=== PATIENT | male | born 1960 | race Caucasian/White ===

== ENCOUNTER 2017-05-14 11:30 | Inpatient (IN) | payer MEDICARE, OTHER ==
[~2017-05-14] VITALS: Ht 180.3 cm; Wt 109.8 kg
[~2017-05-14 11:30] MED LIST: CALC-67 PO; CLOZ25TA23 PO; DIVA500T7 PO; DOCU-159 PO; LURA120T PO; LURA40TA PO; ONDA4TAB8 PO; OXYB10TA13 PO; QUET200T PO; RANI150T9 PO; TAMS0.4C2 PO
[2017-05-14] MEDS ORDERED: CLZP100T PO (12:08)
[2017-05-14] MEDS ORDERED: DIVA500T15 PO (12:08)
[2017-05-14] MEDS ORDERED: ESCI10TA48 PO (12:09)
[2017-05-14] MEDS ORDERED: DOCU-159 PO (12:09)
[2017-05-14] MEDS ORDERED: SOD CHLORIDE 0.9% 1,000 ML IV STA (12:11)
[2017-05-14] MEDS ORDERED: LURA40TA PO (12:12)
[2017-05-14] MEDS ORDERED: LURA120T PO (12:12)
[2017-05-14] MEDS ORDERED: OXYB10TA6 PO (12:13)
[2017-05-14] MEDS ORDERED: CALC-277 PO (12:16)
[2017-05-14] MEDS ORDERED: TAMS0.4C2 PO (12:17)
[2017-05-14 12:18] LABS: BASOPHILS % 0.2 % (0.0-2.0); HEMATOCRIT 43.1 % (42.0-52.0); HEMOGLOBIN 14.1 g/dl (14.0-18.0); LYMPHOCYTES # 0.7 10^3/ul (0.8-2.9); LYMPHOCYTES % 17.4 % (15.0-51.0); MEAN CORPUSCULAR HGB CONC 32.7 g/dl (32.0-37.0); MEAN CORPUSCULAR VOLUME 88.7 fl (82.0-101.0); MONOCYTE # 0.2 10^3/ul (0.3-0.9); MONOCYTES % 5.4 % (0.0-11.0); NEUTROPHILS % 76.8 % (39.0-77.0); PLATELET COUNT 140 10^3/UL (140-415); RED BLOOD COUNT 4.86 10^6/ul (4.70-6.10); RED CELL DISTRIBUTION WIDTH 14.9 % (11.5-14.5); WHITE BLOOD COUNT 4.1 10^3/ul (4.8-10.8)
[2017-05-14] MEDS ORDERED: LORA1TAB PO ×2 (12:18→17:43)
[2017-05-14 12:29] LABS: INR 1.12; PROTIME 14.4 Sec (12.2-14.2); PT RATIO 1.1
[2017-05-14 12:33] LABS: ALBUMIN 4.3 g/dl (3.3-4.9); ALBUMIN/GLOBULIN RATIO 1.1; BILIRUBIN,INDIRECT 0.4 mg/dl (0-1.1); BILIRUBIN,TOTAL 0.4 mg/dl (0.2-1.3); CALCIUM 9.8 mg/dl (8.4-10.2); CREATININE 2.72 mg/dl (0.61-1.24); POTASSIUM 4.3 mmol/L (3.5-5.1); TOTAL PROTEIN 8.2 g/dl (6.1-8.1)
[2017-05-14 12:36] LABS: ANION GAP 16 (8-16); BLOOD UREA NITROGEN 26 mg/dl (7-20); CALCIUM 9.8 mg/dl (8.4-10.2); CARBON DIOXIDE 22 mmol/L (21-31); CHLORIDE 111 mmol/L (97-110); CREATININE 2.58 mg/dl (0.61-1.24); GLUCOSE 247 mg/dl (70-220); POTASSIUM 4.4 mmol/L (3.5-5.1); SODIUM 145 mmol/L (135-144)
--- NOTE | 2017-05-14 12:42 | RADRPT ---
PROCEDURE: Chest radiograph CLINICAL INDICATION: Stroke. COMPARISON: Radiograph from 07/25/2015. TECHNIQUE: Single frontal chest radiograph. FINDINGS: Low lung volumes. The lungs are clear. No pleural effusion or focal parenchymal opacity. The cardiomediastinal silhouette is normal. No suspicious bone lesion. IMPRESSION: No acute cardiopulmonary abnormality, when allowing for portable technique and low lung volumes. RPTAT: PP Wally Pozo Physician Date Time Electronically viewed and signed by Wally Pozo Physician on 05/14/2017 12:42 LG/
[2017-05-14 12:48] LABS: TROPONIN-I < 0.012 ng/ml (0.00-0.12)
[2017-05-14 13:02] LABS: ADD UMIC YES; UR ASCORBIC ACID NEGATIVE (NEGATIVE); UR BILIRUBIN (Dip) NEGATIVE (NEGATIVE); UR BLOOD (Dip) 2+ mg/dL (NEGATIVE); UR CLARITY CLEAR (CLEAR); UR COLOR YELLOW (YELLOW); UR GLUCOSE (Dip) 1+ mg/dL (NEGATIVE); UR KETONES (Dip) TRACE mg/dL (NEGATIVE); UR LEUKOCYTE ESTERASE (Dip) NEGATIVE Leu/ul (NEGATIVE); UR NITRITE (Dip) NEGATIVE (NEGATIVE); UR RBC 1 /HPF (0-5); UR SPECIFIC GRAVITY (Dip) 1.006 (1.003-1.030); UR TOTAL PROTEIN (Dip) 2+ mg/dl (NEGATIVE); UR UROBILINOGEN (Dip) NEGATIVE (NEGATIVE)
[2017-05-14 13:06] VITALS: TEMP 101.7
[2017-05-14 13:06] LABS: PARTIAL THROMBOPLASTIN TIME 24.6 Sec (25.0-35.0)
[2017-05-14 13:15] LABS: BARBITURATES Negative (NEGATIVE); BENZODIAZEPINES Negative (NEGATIVE); CANNABINOIDS Negative (NEGATIVE); COCAINE Negative (NEGATIVE); OPIATES Negative (NEGATIVE)
--- NOTE | 2017-05-14 14:14 | RADRPT ---
PROCEDURE: CT Brain without. CLINICAL INDICATION: Left-sided weakness, concern for stroke TECHNIQUE: A CT of the brain was performed on utilizing axial sections from the skull base through the vertex without contrast. Coronal and sagittal reformats were obtained. The scan was reviewed in soft tissue brain and high frequency resolution bone algorithm windows. Images were reviewed on a high-resolution PACS workstation. CTDI = 42.69 mGy DLP = 72 0.23 mGy-cm One or more of the following dose reduction techniques were used: Automated exposure control Adjustment of the mA and / or kV according to patient size Use of iterative reconstruction technique. COMPARISON: None available FINDINGS: There is no intra or extra-axial mass, hemorrhage, or acute infarct. There is no midline shift or m ass effect. The ventricles, sulci, and cisterns are normal. The visualized orbits are unremarkable. The visualized paranasal sinuses are grossly clear. The ma stoid air cells are clear. The skull and extracranial soft tissues are grossly unremarkable. IMPRESSION: 1. No CT evidence of acute intracranial findings. If there is persistent clinical concern for acute infarct, consider MRI for further evaluation. Findings discussed with Eyad Daigle at 05/14/2017 2:10:49 PM RPTAT: UU .Henrik Arroyo MD, MD Date Time Electronically viewed and signed by .Henrik Arroyo MD, on 05/14/2017 14:13 .K/
[2017-05-14] MEDS ORDERED: SOD CHLORIDE 0.9% 1,000 ML IV SCH (14:24)
[2017-05-14] MEDS ORDERED: ACETAMINOPHEN 325 MG TAB PO PRN (14:30)
[2017-05-14] MEDS ORDERED: ONDANSETRON 4 MG INJ IV PRN (14:30)
[2017-05-14] MEDS ORDERED: SOD CHLORIDE 0.45% 1,000 ML IV ONE (14:32)
--- NOTE | 2017-05-14 14:32 | ERA ---
ER Documentation Chief Complaint Date/Time DATE: 05/14/17 TIME: 14:25 Chief Complaint Pt BIB RA for fever since this Am. HPI History obtained from EMS this patient is unable to give a detailed history secondary to his clinical condition. This is a 56-year-old male was brought in by ambulance from his rehabilitation center for evaluation of altered mental status. According to EMS this patient was walking down the hallway naked and appeared to be more altered than normal. EMS did state that the air conditioning was not on in the rehabilitation center. ROS All systems reviewed and are negative except as per history of present illness. Medications Home Meds Reported Medications Lorazepam* (Lorazepam*) 1 Mg Tablet, 1 MG PO Q6 Y for ANXIETY, #60 TAB 05/14/17 Tamsulosin Hcl* (Tamsulosin Hcl*) 0.4 Mg Cap.er.24h, 0.4 MG PO DAILY, CAP 05/14/17 Calcium Carbonate/Vitamin D3 (OYSTER SHELL 500 MG + VIT D TB) 1 Each Tablet, 1 EACH PO BID, TAB 500MG/200IU AT 8AM AND 5PM 05/14/17 Oxybutynin Chloride* (Ditropan* XL) 10 Mg Tab.er.24, 10 MG PO Q8PM, TAB.SA 05/14/17 Lurasidone Hcl (LATUDA) 120 Mg Tablet, 120 MG PO DAILY, #30 TAB TAKE WITH 40MG AT 4:30PM 05/14/17 Lurasidone Hcl (LATUDA) 40 Mg Tablet, 40 MG PO DAILY, #30 TAB TAKE WITH 120MG AT 4:30PM 05/14/17 Escitalopram Oxalate* (Escitalopram Oxalate*) 10 Mg Tablet, 10 MG PO DAILY, #30 TAB 05/14/17 Docusate Sodium* (Docusate Sodium*) 100 Mg Capsule, 100 MG PO BID, #60 CAP 05/14/17 Divalproex Sodium* (Divalproex ER*) 500 Mg Tab.er.24h, 1000 MG PO QHS, #60 TAB.SA 05/14/17 Clozapine* (Clozaril*) 100 Mg Tab, 150 MG PO QHS, TAB 05/14/17 Discontinued Reported Medications Clozapine* (Clozaril*) 25 Mg Tab, 150 MG PO HS, TAB 07/25/15 Tamsulosin Hcl* (Tamsulosin Hcl*) 0.4 Mg Cap.er.24h, 0.4 MG PO HS, CAP 07/25/15 Quetiapine Fumarate* (Seroquel*) 200 Mg Tablet, 200 MG PO HS, TAB 07/25/15 Calcium Carbonate/Vitamin D3* (Os-Hasmukh 500+D*) 1 Tab Tablet, 1 TAB PO BID, TAB 07/25/15 Oxybutynin Chloride* (Oxybutynin Chloride* ER) 10 Mg/Bottle Tab.osm.24, 10 MG PO HS, TAB.SA 07/25/15 Lurasidone Hcl (LATUDA) 120 Mg Tablet, 120 MG PO DAILY 07/25/15 Lurasidone Hcl (LATUDA) 40 Mg Tablet, 40 MG PO DAILY 07/25/15 Docusate Sodium* (Docusate Sodium*) 100 Mg Capsule, 100 MG PO BID, CAP 07/25/15 Divalproex Sodium* (Depakote ER*) 500 Mg Tabsr, 1000 MG PO HS, TAB.SA 07/25/15 Discontinued Scripts Ranitidine Hcl* (Zantac*) 150 Mg Tablet, 150 MG PO BID Y for GASTROINTESTINAL UPSET, #30 TAB Prov:HI MARS 07/25/15 Ondansetron Hcl* (Zofran*) 4 Mg Tablet, 4 MG PO Q8H Y for NAUSEA AND/OR VOMITING , #14 TAB Prov:HI MARS 07/25/15 Allergies Allergies: Coded Allergies: No Known Allergy (Unverified , 05/14/17) PMhx/Soc History of Surgery: No Anesthesia Reaction: No Hx Neurological Disorder: No Hx Respiratory Disorders: No Hx Cardiac Disorders: No Hx Psychiatric Problems: Yes ("psych" per pt) Hx Miscellaneous Medical Probl: Yes (urinary incontinence) Hx Alcohol Use: No Hx Substance Use: No Hx Tobacco Use: No Smoking Status: Former smoker Physical Exam Vitals Vital Signs Date Time Temp Pulse Resp B/P Pulse Ox O2 Delivery O2 Flow Rate FiO2 05/14/17 13:06 101.7 92 16 132/82 99 Nasal Cannula 2.0 05/14/17 12:02 106.7 108 18 132/82 97 Physical Exam INITIAL VITAL SIGNS: Reviewed by me GENERAL: The patient is warm to the touch, mild distress HEENT: Severely dry mucous membranes, pupils equal, round, and reactive to light. EOMI. There is no scleral icterus. NECK: C-spine is soft and supple, there is no meningismus. There is no cervical lymphadenopathy. LUNGS: Clear to auscultation bilaterally. There are no rales, wheezes or rhonchi. HEART: Tachycardic, no murmurs, clicks, rubs or gallops. ABDOMEN: Soft, non-tender, non-distended. There are bowel sounds in all four quadrants. No rebound or guarding. EXTREMITIES: There is no peripheral cyanosis or edema. No focal swelling or erythema. NEUROLOGICAL: GCS of 10, the patient moves all four extremities with 5/5 strength. Cranial nerves II - XII are intact. Alert and oriented SKIN: Warm to touch, there is no apparent rash or petechiae. HEME/LYMPHATIC: There is no evidence of excessive bruising or lymphedema. PSYCHIATRIC: The patient does not appear anxious or depressed. Result Diagram: 05/14/17 1051 05/14/17 1051 Results 24 hrs Laboratory Tests Test 05/14/17 10:51 05/14/17 12:00 White Blood Count 4.110^3/ul Red Blood Count 4.8610^6/ul Hemoglobin 14.1g/dl Hematocrit 43.1% Mean Corpuscular Volume 88.7fl Mean Corpuscular Hemoglobin 29.0pg Mean Corpuscular Hemoglobin Concent 32.7g/dl Red Cell Distribution Width 14.9% Platelet Count 17527^3/UL Mean Platelet Volume 11.0fl Neutrophils % 76.8% Lymphocytes % 17.4% Monocytes % 5.4% Eosinophils % 0.0% Basophils % 0.2% Nucleated Red Blood Cells % 0.0/100WBC Neutrophils # (Manual) 3.110^3/ul Lymphocytes # 0.710^3/ul Monocytes # 0.210^3/ul Eosinophils # 0.010^3/ul Basophils # 0.010^3/ul Nucleated Red Blood Cells # 0.010^3/ul Prothrombin Time 14.4Sec Prothrombin Time Ratio 1.1 INR International Normalized Ratio 1.12 Activated Partial Thromboplast Time 24.6Sec Sodium Level 146mmol/L Potassium Level 4.3mmol/L Chloride Level 111mmol/L Carbon Dioxide Level 21mmol/L Anion Gap 18 Blood Urea Nitrogen 25mg/dl Creatinine 2.72mg/dl Glucose Level 252mg/dl Hemoglobin A1c 8.8% Lactic Acid Level 2.0mmol/L 1.1mmol/L Calcium Level 9.8mg/dl Total Bilirubin 0.4mg/dl Direct Bilirubin 0.00mg/dl Indirect Bilirubin 0.4mg/dl Aspartate Amino Transf (AST/SGOT) 41IU/L Alanine Aminotransferase (ALT/SGPT) 36IU/L Alkaline Phosphatase 90IU/L Troponin I < 0.012ng/ml Total Protein 8.2g/dl Albumin 4.3g/dl Globulin 3.90g/dl Albumin/Globulin Ratio 1.10 Urine Color YELLOW Urine Clarity CLEAR Urine pH 6.0 Urine Specific [place] 1.006 Urine Ketones TRACEmg/dL Urine Nitrite NEGATIVEmg/dL Urine Bilirubin NEGATIVEmg/dL Urine Urobilinogen NEGATIVEmg/dL Urine Leukocyte Esterase NEGATIVELeu/ul Urine Microscopic RBC 1/HPF Urine Microscopic WBC 0/HPF Urine Hemoglobin 2+mg/dL Urine Glucose 1+mg/dL Urine Total Protein 2+mg/dl Urine Opiates Screen Negative Urine Barbiturates Negative Urine Amphetamines Screen Negative Urine Benzodiazepines Screen Negative Urine Cocaine Screen Negative Urine Cannabinoids Negative Current Medications Medications (Trade) Dose Ordered Sig/Evaristo Route PRN Reason Start Time Stop Time Status Last Admin Dose Admin Sodium Chloride (NS) 1,000 ml @ 1,000 mls/hr Q1H STAT IV 05/14/17 12:11 05/14/17 13:10 DC 05/14/17 12:35 Procedures/MDM EKG: Rate/Rhythm: Sinus tachycardia QRS, ST, T-waves: [No changes consistent w/ acute ischemia] Impression: [No evidence of ischemia or arrhythmia] Chest X-ray 1V Interpreted by me: Soft Tissue: No acute abnormalities Bones: No acute abnormalities Mediastinum/Cardiac Silhouette/Lungs: [No acute abnormalities] CT brain without: 1. No CT evidence of acute intracranial findings. If there is persistent clinical concern for acute infarct, consider MRI for further evaluation. This 56-year-old male presents to the emergency room for evaluation of altered mental status. When I evaluated this patient he did appear to be altered, he was arousable to painful stimuli, and was warm to the touch. We obtained a rectal temperature which showed a temperature of 106.5F. This patient was immediately externally cooled with ice packs and we did infuse this patient with cold IV normal saline. The patient underwent a septic workup which does not show any leukocytosis, CT the brain is within normal limits and chest x-ray is clear. This patient was reevaluated and this patient's temperature is now 101F. He is alert oriented to person place and time, no focal neurological deficits, answering question appropriately. This patient likely suffering from heat exhaustion and possibly minor heatstroke. The patient will be placed in for admission at this time for IV hydration. He is tolerating p.o. hydration at this time. The patient is okay with her plan of care and will be admitted at this time on the telemetry floor under the care of Dr. mendoza. Critical Care: Excluding all billable procedures Time: 48 minutes Treatments/Evaluations: Close monitoring and treatment of unstable vital signs, cardiorespiratory, and neurologic status, while maintaining tight balance of fluid, respiratory, and cardiac interventions. Departure Diagnosis: Primary Impression: Heat exhaustion Additional Impressions: Dehydration, moderate Renal insufficiency Condition: Stable WILSON CANTU DO May 14, 2017 14:31
[2017-05-14 16:29] VITALS: Ht 180.3 cm; Wt 109.8 kg
[2017-05-14 16:37] VITALS: BP 108/59; PULSE 71; RESP 18
[2017-05-14 21:45] VITALS: BP 97/57; RESP 16
[2017-05-15 03:22] VITALS: BP 111/61; RESP 18
[2017-05-15] MEDS ORDERED: LORAZEPAM 1 MG TAB PO PRN (04:30)
--- NOTE | 2017-05-15 04:44 | HP ---
Date/Time of Note Date/Time of Note DATE: 05/15/17 TIME: 04:33 Assessment/Plan VTE Prophylaxis VTE Prophylaxis Intervention: SCD's Lines/Catheters Urinary Cath still in place: Yes Reason Cath still needed: terminal illness/intractable pain Assessment/Plan Assessment/Plan 1. Altered mentation and lethargy: Secondary to heat exhaustion. Head CT negative for acute findings -Patient presented to ER with a temp of 106.9. He is status post IV fluids, Tylenol and cooling measures. Currently temperature is 97.4 -Continue IV fluid and cooling measures as needed 2. Presumed acute on CKD: Likely from volume depletion from dehydration -Continue IV fluid -Closely monitor kidney function -Renal ultrasound and nephrology consult as needed 3. Diabetes, A1c 8.8 -Insulin while in house with adjustment as needed 4. BPH -Continue home med 5. History of seizure disorder -Continue home med 6. History of bipolar/depression -Continue home meds HPI/ROS Admit Date/Time Admit Date/Time May 14, 2017 at 14:25 Hx of Present Illness This is a 56-year-old male with a history of diabetes, seizure disorder, CKD, BPH, bipolar/depression who was brought from SNF for lethargy, AMS and fever. Patient was found walking around in the hallway looking exhausted and altered. He was febrile. Reportedly the air conditioner in the hallway was not turned on. Patient not able to give meaningful history and as such information is gathered from chart review and from ER physician. When he presented to the ER, he was febrile with a temp of 106.9 and tachycardic with a heart rate of 108. Head CT was negative for acute findings. Chest x-ray also with no active cardiopulmonary disease. Patient received IV fluids, Tylenol and cooling measures were done. Currently his temperature is 97.4. . PMH/Family/Social Past Medical History .Diabetes, type II CKD Bipolar/depression BPH Seizure disorder . Social History Alcohol Use: none Smoking Status: Never smoker Drug Use: none Exam/Review of Systems Vital Signs Vitals Vital Signs Date Time Temp Pulse Resp B/P Pulse Ox O2 Delivery O2 Flow Rate FiO2 05/15/17 03:22 97.4 63 18 111/61 95 05/14/17 16:37 Room Air 05/14/17 13:06 2.0 Intake and Output 05/14/17 05/14/17 05/15/17 15:00 23:00 07:00 Intake Total 125 ml Output Total 1400 ml Balance -1275 ml Exam Constitutional: other (No acute distress. Not fully oriented) Head: atraumatic, normocephalic Eyes: EOMI, PERRL Respiratory: clear to auscultation, normal air movement Cardiovascular: other (Tachycardic with regular rhythm) Gastrointestinal: non-tender, soft Extremities: normal pulses Labs Result Diagram: 05/14/17 1051 05/14/17 1051 ANH TAYLOR MD May 15, 2017 04:44
[2017-05-15] MEDS ORDERED: GLUCOSE GEL 15 GRAM TUBE BUCCAL PRN (05:30)
[2017-05-15] MEDS ORDERED: GLUCAGON 1 MG INJ IM PRN (05:30)
[2017-05-15] MEDS ORDERED: GLUCOSE GEL 15 GRAM TUBE PO PRN ×2 (05:30)
[2017-05-15] MEDS ORDERED: DEXTROSE 50% 50 ML SYRINGE IV PRN ×2 (05:30)
[2017-05-15 06:01] LABS: ABNORMAL IP MESSAGE 1; HEMATOCRIT 35.2 % (42.0-52.0); HEMOGLOBIN 11.3 g/dl (14.0-18.0); MEAN CORPUSCULAR HGB CONC 32.1 g/dl (32.0-37.0); MEAN CORPUSCULAR VOLUME 93.4 fl (82.0-101.0); MEAN PLATELET VOLUME 11.3 fl (7.4-10.4); PLATELET COUNT 97 10^3/UL (140-415); POSITIVE DIFF @See below; RED BLOOD COUNT 3.77 10^6/ul (4.70-6.10); RED CELL DISTRIBUTION WIDTH 14.8 % (11.5-14.5)
[2017-05-15 06:20] LABS: ALBUMIN 2.7 g/dl (3.3-4.9); ALBUMIN/GLOBULIN RATIO 0.87; BILIRUBIN,INDIRECT 0.2 mg/dl (0-1.1); BILIRUBIN,TOTAL 0.2 mg/dl (0.2-1.3); CALCIUM 7.6 mg/dl (8.4-10.2); CREATININE 1.62 mg/dl (0.61-1.24); POTASSIUM 4.2 mmol/L (3.5-5.1); TOTAL PROTEIN 5.8 g/dl (6.1-8.1)
[2017-05-15 07:38] LABS: ANISOCYTOSIS 1+ (0-0); MICROCYTOSIS 1+ (0-0); MONOCYTES % (M) 9 % (0-11); PLATELET ESTIMATE DECREASED; POLYCHROMASIA 3+ (0-0)
[2017-05-15 08:00] VITALS: BP 125/69; RESP 19
[2017-05-15] MEDS: INSULIN GLARGINE [LANtus] 3 ML PEN SC SCH (08:33)
[2017-05-15] MEDS: INSULIN ASPART [NOVOLOG] 3 ML PEN SC SCH ×7 (08:33→20:34)
[2017-05-15] MEDS: ESCITALOPRAM 10 MG TAB PO SCH (08:36)
[2017-05-15] MEDS: DOCUSATE SODIUM 100 MG CAP PO SCH ×2 (08:36→20:34)
[2017-05-15] MEDS: CALCIUM/VITAMIN D (500/200) TAB PO SCH ×2 (08:36→20:34)
[2017-05-15] MEDS: TAMSULOSIN (SR) 0.4 MG CAP PO SCH (08:36)
[2017-05-15] MEDS: OXYBUTYNIN (XL) 5 MG TAB PO SCH (08:40)
--- NOTE | 2017-05-15 09:26 | PN ---
Date/Time of Note Date/Time of Note DATE: 05/15/17 TIME: 09:24 Assessment/Plan Lines/Catheters Urinary Cath still in place: Yes Assessment/Plan Assessment/Plan 1. Altered mentation and lethargy: Secondary to heat exhaustion: now resolved Head CT negative for acute findings -Patient presented to ER with a temp of 106.9. He is status post IV fluids, Tylenol and cooling measures. Currently temperature is 97.4 -Continue IV fluid and cooling measures as needed 2. Presumed acute on CKD: Likely from volume depletion from dehydration Renal uss 3. Diabetes, A1c 8.8 -Insulin while in house with adjustment as needed 4. BPH -Continue home med 5. History of seizure disorder -Continue home med 6. History of bipolar/depression -Continue home meds Subjective 24 Hr Interval Summary Free Text/Dictation patient wants navarro out, wants to know if he has BPH Exam/Review of Systems Vital Signs Vitals Vital Signs Date Time Temp Pulse Resp B/P Pulse Ox O2 Delivery O2 Flow Rate FiO2 05/15/17 08:00 97.4 63 19 125/69 97 05/14/17 16:37 Room Air 05/14/17 13:06 2.0 Intake and Output 05/14/17 05/14/17 05/15/17 15:00 23:00 07:00 Intake Total 125 ml 1795 ml Output Total 1400 ml 1200 ml Balance -1275 ml 595 ml Exam Constitutional: alert, oriented Head: atraumatic, normocephalic Neck: non-tender, supple Respiratory: clear to auscultation Cardiovascular: regular rate and rhythm Gastrointestinal: S/ NT / ND / +BS Extremities: no edema, good radial pulses Results Result Diagram: 05/15/17 0501 05/15/17 0501 Results 24 hrs Laboratory Tests Test 05/14/17 10:51 05/14/17 12:00 05/14/17 15:30 05/15/17 05:01 White Blood Count 4.1 #L 6.0 # Red Blood Count 4.86 3.77 #L Hemoglobin 14.1 11.3 L Hematocrit 43.1 35.2 L Mean Corpuscular Volume 88.7 93.4 Mean Corpuscular Hemoglobin 29.0 30.0 Mean Corpuscular Hemoglobin Concent 32.7 32.1 Red Cell Distribution Width 14.9 H 14.8 H Platelet Count 140 97 #L Mean Platelet Volume 11.0 #H 11.3 H Neutrophils % 76.8 Lymphocytes % 17.4 Monocytes % 5.4 Eosinophils % 0.0 Basophils % 0.2 Nucleated Red Blood Cells % 0.0 0.0 Neutrophils # (Manual) 3.1 3.8 Lymphocytes # 0.7 L Monocytes # 0.2 L Eosinophils # 0.0 Basophils # 0.0 Nucleated Red Blood Cells # 0.0 Prothrombin Time 14.4 H Prothrombin Time Ratio 1.1 INR International Normalized Ratio 1.12 Activated Partial Thromboplast Time 24.6 L Sodium Level 146 H 141 Potassium Level 4.3 4.2 Chloride Level 111 H 111 H Carbon Dioxide Level 21 23 Anion Gap 18 H 11 # Blood Urea Nitrogen 25 H 27 H Creatinine 2.72 H 1.62 #H Glucose Level 252 H 251 H Hemoglobin A1c 8.8 H Lactic Acid Level 2.0 1.1 0.9 Calcium Level 9.8 7.6 L Total Bilirubin 0.4 0.2 Direct Bilirubin 0.00 0.00 Indirect Bilirubin 0.4 0.2 Aspartate Amino Transf (AST/SGOT) 41 33 Alanine Aminotransferase (ALT/SGPT) 36 31 Alkaline Phosphatase 90 73 Troponin I < 0.012 Total Protein 8.2 H 5.8 #L Albumin 4.3 2.7 #L Globulin 3.90 H 3.10 Albumin/Globulin Ratio 1.10 0.87 Urine Color YELLOW Urine Clarity CLEAR Urine pH 6.0 Urine Specific [place] 1.006 Urine Ketones TRACE A Urine Nitrite NEGATIVE Urine Bilirubin NEGATIVE Urine Urobilinogen NEGATIVE Urine Leukocyte Esterase NEGATIVE Urine Microscopic RBC 1 Urine Microscopic WBC 0 Urine Hemoglobin 2+ H Urine Glucose 1+ H Urine Total Protein 2+ H Urine Opiates Screen Negative Urine Barbiturates Negative Urine Amphetamines Screen Negative Urine Benzodiazepines Screen Negative Urine Cocaine Screen Negative Urine Cannabinoids Negative Segmented Neutrophils % (Manual) 63 Band Neutrophils % (Manual) 5 H Lymphocytes % (Manual) 23 Monocytes % (Manual) 9 Band Neutrophils # 0.3 Absolute Lymphocytes (Manual) 1.3 Absolute Monocytes (Manual) 0.5 Platelet Estimate DECREASED Polychromasia 3+ Anisocytosis 1+ Microcytosis 1+ Test 05/15/17 06:32 05/15/17 08:14 Bedside Glucose 253 H 218 Medications Medications Current Medications Calcium/Vitamin D (Oyster Shell/ Vit-D (500/200)) 1 tab BID PO Last administered on 05/15/17 08:36; Admin Dose 1 TAB; Start 05/15/17 at 09:00 Clozapine (Clozaril) 150 mg QHS PO ; Start 05/15/17 at 21:00 Divalproex Sodium (Depakote Er) 1,000 mg QHS PO ; Start 05/15/17 at 21:00 Docusate Sodium (Colace) 100 mg BID PO Last administered on 05/15/17 08:36; Admin Dose 100 MG; Start 05/15/17 at 09:00 Escitalopram Oxalate (Lexapro) 10 mg DAILY PO Last administered on 05/15/17 08: 36; Admin Dose 10 MG; Start 05/15/17 at 09:00 Lorazepam (Ativan) 1 mg Q6 PRN PO ANXIETY; Start 05/15/17 at 04:30 Oxybutynin Chloride (Ditropan Xl) 10 mg DAILY PO Last administered on 05/15/17 08:40; Admin Dose 10 MG; Start 05/15/17 at 09:00 Tamsulosin HCl (Flomax) 0.4 mg DAILY PO Last administered on 05/15/17 08:36; Admin Dose 0.4 MG; Start 05/15/17 at 09:00 Diagnostic Test (Pha) (Accu-Chek) 1 ea 02 XX ; Start 05/16/17 at 02:00 Insulin Glargine (Lantus) 16 unit DAILY@08 SC Last administered on 05/15/17 08: 33; Admin Dose 16 UNIT; Start 05/15/17 at 08:00 Diagnostic Test (Pha) (Accu-Chek) 1 ea 02 XX ; Start 05/16/17 at 02:00 Miscellaneous Information 1 ea NOTE XX ; Start 05/15/17 at 05:30 Glucose (Glutose) 15 gm Q15M PRN PO DECREASED GLUCOSE; Start 05/15/17 at 05:30 Glucose (Glutose) 22.5 gm Q15M PRN PO DECREASED GLUCOSE; Start 05/15/17 at 05:30 Dextrose (D50w Syringe) 25 ml Q15M PRN IV DECREASED GLUCOSE; Start 05/15/17 at 05:30 Dextrose (D50w Syringe) 50 ml Q15M PRN IV DECREASED GLUCOSE; Start 05/15/17 at 05:30 Glucagon (Glucagen) 1 mg Q15M PRN IM DECREASED GLUCOSE; Start 05/15/17 at 05:30 Glucose (Glutose) 15 gm Q15M PRN BUCCAL DECREASED GLUCOSE; Start 05/15/17 at 05: 30 ALFREDO CHAUHAN May 15, 2017 09:26
--- NOTE | 2017-05-15 13:05 | PN ---
DATE: 05/15/2017 SUBJECTIVE: The patient is feeling much better. He is able to remember what happened yesterday and he tells me that he was walking around a lot in the sun and in the resident where he resides, the AC is broken is due to be fixed on Monday. He had presented to the Emergency Room with a temperature of a 106.9 and was admitted for heat exhaustion. Per report, he was altered when he came in, but right now he is oriented x4 and actually wants to be worked up for BPH. OBJECTIVE DATA: VITAL SIGNS: At this time, temperature 97.4, pulse 63, respirations 19, blood pressure 124/69, saturation is 97 percent on room air. GENERAL: The patient is alert and oriented, sitting on the edge of the bed currently in no distress. He has somewhat of a blunt affect however. HEENT: Head normocephalic. Pupils equal, round, and reactive. Mucous membranes moist. Posterior pharynx clear of erythema or exudate. NECK: Supple. CHEST: Clear to auscultation. CARDIOVASCULAR: S1, S2, without murmurs. ABDOMEN: Soft, nontender, and nondistended with normoactive bowel sounds. EXTREMITIES: There is no lower extremity edema. SKIN: Devoid of ecchymoses or rash, or jaundice. LABORATORY AND DIAGNOSTIC DATA: Normal WBC count, hemoglobin is slightly low at 11.3 with normocytic/normochromic indices, platelet count low at 97. He does have 5 percent bands, however, but does not have a neutrophil predominance. Coagulation profile from yesterday was reviewed and was unremarkable. His chemistry today is better than previously. Creatinine is improved to 1.6 from 2.72 and chloride is 111, which is slightly high. His calcium is down to 7.6, however; but his liver profile is unremarkable. His serum glucose is still abnormal at 251. A UA toxicology screen from yesterday was negative. A urinalysis did show hemoglobin, glucose, and protein. Blood cultures so far have been negative. I reviewed the chest x-ray and the brain CT from yesterday as well. For details, review my partner's notes from the [facility] ASSESSMENT: A 56-year-old male who was brought in for acute alteration in mental status, managed as follows. 1. Acute encephalopathy. Likely metabolic secondary to acute heat exhaustion. 2. Acute heat exhaustion. 3. Acute renal failure on chronic kidney disease, status improved. 4. Diabetes mellitus, type 2, with suboptimal control. 5. Bandemia. Likely systemic inflammatory response, which is improving. 6. Thrombocytopenia. 7. Chronic bipolar disorder. PLAN: The plan today is per the patient's request, we will order a PSA, also order a renal ultrasound, also order a creatine kinase level. We will continue IV fluid hydration. outreach and education social worker consult to contact his home facility to make sure that the air conditioning problem is being resolved. The goal of discharge will be to ensure that the patient remains seizure free for at least 24 hours and also to ensure that he has a safe place to return to. In the interim, physical therapy consultation has been obtained and further interventions will depend on his clinical course. Dictated By: Citlalli Eli MD /saurav/torie /Document#: [id number]
[2017-05-15 14:00] VITALS: BP 137/67; RESP 21
--- NOTE | 2017-05-15 18:05 | RADRPT ---
PROCEDURE: Retroperitoneal US. CLINICAL INDICATION: Renal insufficiency TECHNIQUE: Multiple sonographic images of the kidneys and retroperitoneum were obtained. The imag es were reviewed on a PACS workstation. COMPARISON: No prior studies are available for comparison. FINDINGS: The kidneys are normal in size, contour, cortical thickness There is increased echogenicity of the kidneys. The right kidney measures 12.2 cm. The left kidney measures 11.7 cm. There are multiple bilateral simple cysts in the kidneys, the largest in the right kidney measures 3 .4 cm and the largest in the left kidney measures 2.4 cm. No kidney stones are visualized. There is no evidence for hydronephrosis. The urinary bladder is normal. RPTAT: AA IMPRESSION: Multiple bilateral simple kidney cysts. Bilateral echogenic kidneys, consistent with medical renal disease. .Mao Velazquez MD, MD Date Time Electronically viewed and signed by .Mao Velazquez MD, MD on 05/15/2017 18:04 .S/
[2017-05-15 19:57] VITALS: BP 94/51; RESP 19
[2017-05-15] MEDS ORDERED: CLOZAPINE 25 MG TAB PO SCH (21:00)
[2017-05-15] MEDS ORDERED: DIVALPROEX (ER) 500 MG TAB PO SCH (21:00)
[2017-05-15] MEDS ORDERED: CLOZAPINE 100 MG TABLET PO SCH (21:01)
[2017-05-16] MEDS ORDERED: ACCU-CHEK XX SCH ×2 (02:00)
[2017-05-16 02:07] VITALS: BP 111/63; RESP 18
[2017-05-16] MEDS: INSULIN ASPART [NOVOLOG] 3 ML PEN SC SCH ×4 (08:00→12:09)
[2017-05-16 08:21] VITALS: BP 141/78; RESP 16
[2017-05-16] MEDS: OXYBUTYNIN (XL) 5 MG TAB PO SCH (08:27)
[2017-05-16] MEDS: DOCUSATE SODIUM 100 MG CAP PO SCH (08:27)
[2017-05-16] MEDS: CALCIUM/VITAMIN D (500/200) TAB PO SCH (08:27)
[2017-05-16] MEDS: TAMSULOSIN (SR) 0.4 MG CAP PO SCH (08:27)
[2017-05-16] MEDS: ESCITALOPRAM 10 MG TAB PO SCH (08:27)
[2017-05-16] MEDS: INSULIN GLARGINE [LANtus] 3 ML PEN SC SCH (08:30)
[2017-05-16] MEDS ORDERED: NOVO3I SC (09:50)
[2017-05-16] MEDS ORDERED: LANT3I SC (09:50)
[2017-05-16] MEDS ORDERED: BLOO1EAC85 MC (10:13)
[2017-05-16] MEDS ORDERED: LANC1COM MC (10:13)
--- NOTE | 2017-05-16 10:15 | PDOCDIS ---
Discharge Instructions DIAGNOSIS Discharge Diagnosis Heat Exhaustion CONDITION Patient Condition: Stable HOME CARE INSTRUCTIONS: Diet Instructions: Reduced CalorieSpecial Diet: 1800 Calorie diet FOLLOW UP/APPOINTMENTS Follow-up Plan Followup with your primary doctor within the next 1-2 weeks. If you don't have one please let someone know, we can give you resources that may help you pick one. You may call Dr Devan Salmeron's office. he's accepting new patients Name, Degree: Devan Salmeron MD Specialty: Internal Medicine Comments: Office Address: [address] [place], [place] [id number] Office Office You may also call your insurance company to assign one to you. Review your medication list with your nurse before leaving and if you need new prescriptions please let your nurse know. I may have made changes to your home medications or given you new prescriptions, please let your primary doctor know as well. Stay compliant with your medications and report any side effects to your PCP or pharmacist. Return to the ER if you have any concerns and cannot reach your doctors or call your insurance company, they usually have a nurse that can help you. ALFREDO CHAUHAN May 16, 2017 10:15
[2017-05-16 14:09] VITALS: BP 91/52; RESP 18
== END 2017-05-16 14:25 | disposition home or self-care (01) | DRG 70 ==
LOC: E/R 11:30 → PP2 14:25
PROVIDERS: ADMIT Internal Medicine; ATTEND Internal Medicine
DX: G93.41 Metabolic encephalopathy (principal); R65.11 Systemic inflammatory response syndrome (SIRS) of non-infectious origin with acute organ dysfunction; N17.9 Acute kidney failure, unspecified; E11.22 Type 2 diabetes mellitus with diabetic chronic kidney disease; D69.6 Thrombocytopenia, unspecified; E86.0 Dehydration; D72.825 Bandemia; N18.9 Chronic kidney disease, unspecified; F31.9 Bipolar disorder, unspecified; G40.909 Epilepsy, unspecified, not intractable, without status epilepticus; N40.0 Benign prostatic hyperplasia without lower urinary tract symptoms; T67.5XXA Heat exhaustion, unspecified, initial encounter; X30.XXXA Exposure to excessive natural heat, initial encounter; Y93.01 Activity, walking, marching and hiking
CPT/HCPCS: 36415; 70450; 71010; 76775; 80048; 80053; 80307; 81001; 82962; 83036; 83605; 84153; 84154; 84484; 85025; 85610; 85730; 87040; 87086; 92523; 92610; 93005; J1815; J7030